=== PATIENT | male | born 1975 | race Hispanic/Latino ===

== ENCOUNTER 2018-12-26 07:49 | Outpatient (CLI) | payer OTHER ==
--- NOTE | 2018-12-26 09:08 | RAD ---
RIGHT KNEE 4 VIEWS: HISTORY: Right knee pain FINDINGS: Degenerative changes are present. No fracture, dislocation or bony destruction is identifie d.
== END 2018-12-26 07:50 | disposition home or self-care (01) ==
LOC: BICRAD 07:49
PROVIDERS: ATTEND Family Medicine
DX: M25.561 Pain in right knee (principal)